=== PATIENT | female | born 1995 | race African-American/Black ===

== ENCOUNTER 2016-10-28 23:13 | Emergency (ER) | payer OTHER ==
[~2016-10-28] VITALS: Ht 154.9 cm; Wt 63.6 kg
[~2016-10-28 23:13] MED LIST: IBUPROFEN800 MG PO; MULTIVITAMIN1 EAC2 PO; PERCOCET 5/31 TABLET PO; PRENATAL TABLE1 EACH PO; ZOFRAN4 MG PO; [UNRECOGNIZED DRUG - OTHER] PO
[2016-10-28 23:44] LABS: HEMATOCRIT 41.6 % (36.0-46.0); MCH 24.7 PG (29.0-34.0); MCHC 31.3 G/DL (30.0-36.0); MCV 78.9 FL (83-99); MEAN PLAT.VOLUME 10.1 uM^3 (9.5-12.4); PLATELET COUNT 333 K/uL (156-360); RBC DIS.WIDTH-CV 13.8 % (11.8-14.6); RBC DIS.WIDTH-SD 39.4 % (39-53); RED BLOOD COUNT 5.27 M/uL (3.80-5.20); WHITE BLOOD COUNT 7.6 K/uL (4.1-10.2)
[2016-10-28 23:53] LABS: CHLORIDE 104 mEq/L (99-109); POTASSIUM 3.3 mEq/L (3.7-5.4); SODIUM 139 mEq/L (136-147)
[2016-10-28 23:54] LABS: GLUCOSE 94 mg/dL (70-99)
[2016-10-28 23:56] LABS: ANION GAP 12 MEQ/L (2-14)
[2016-10-28 23:58] LABS: GFR ESTIMATE (CALCULATED) > 59 mL/min/
[2016-10-28 23:59] LABS: UREA NITROGEN (BUN) 16 mg/dL (9-23)
[2016-10-29 00:04] LABS: TROP-I INTERPRETATION NEGATIVE; TROPONIN-I < 0.01 ng/mL (0.0-0.30)
[2016-10-29 00:24] LABS: D-DIMER ELISA 0.27 mg/L FEU (< 0.57)
[2016-10-29 01:06] VITALS: BP 106/77
== END 2016-10-29 01:07 | disposition home or self-care (01) ==
LOC: EME 23:13
DX: R07.9 Chest pain, unspecified (principal); R20.2 Paresthesia of skin; R06.00 Dyspnea, unspecified; M54.9 Dorsalgia, unspecified; M25.512 Pain in left shoulder
CPT/HCPCS: 71020; 80048; 84484; 85027; 85379; 93005; 99281; 99284

== ENCOUNTER 2017-02-12 17:29 | Emergency (ER) | payer OTHER ==
[~2017-02-12] VITALS: Ht 154.9 cm; Wt 62.8 kg
[2017-02-12 18:51] LABS: HEMATOCRIT 38.8 % (36.0-46.0); MCH 25.4 PG (29.0-34.0); MCHC 31.7 G/DL (30.0-36.0); MCV 80.2 FL (83-99); MEAN PLAT.VOLUME 10.2 uM^3 (9.5-12.4); PLATELET COUNT 271 K/uL (156-360); RBC DIS.WIDTH-CV 13.6 % (11.8-14.6); RBC DIS.WIDTH-SD 39.1 % (39-53); RED BLOOD COUNT 4.84 M/uL (3.80-5.20); WHITE BLOOD COUNT 7.4 K/uL (4.1-10.2)
[2017-02-12 19:00] LABS: CHLORIDE 106 mEq/L (99-109); POTASSIUM 3.8 mEq/L (3.7-5.4); SODIUM 138 mEq/L (136-147)
[2017-02-12 19:02] LABS: GLUCOSE 97 mg/dL (70-99)
[2017-02-12 19:03] LABS: ANION GAP 6 MEQ/L (2-14)
[2017-02-12 19:06] LABS: GFR ESTIMATE (CALCULATED) > 59 mL/min/
[2017-02-12 19:07] LABS: UREA NITROGEN (BUN) 16 mg/dL (9-23)
[2017-02-12 19:13] LABS: TROP-I INTERPRETATION NEGATIVE; TROPONIN-I < 0.01 ng/mL (0.0-0.30)
[2017-02-12 20:42] VITALS: BP 111/93
== END 2017-02-12 20:44 | disposition home or self-care (01) ==
LOC: EME 17:29
DX: R07.9 Chest pain, unspecified (principal); F41.9 Anxiety disorder, unspecified; Z73.3 Stress, not elsewhere classified; Z63.5 Disruption of family by separation and divorce
CPT/HCPCS: 71020; 80048; 84484; 85027; 93005; 99281; 99284